=== PATIENT | female | born 1930 | race Caucasian/White ===

== ENCOUNTER 2018-07-16 12:42 | Inpatient (IN) | payer MEDICARE, BC ==
[2018-07-16 13:08] LABS: ADD MAN DIFF? NO
[2018-07-16 13:27] LABS: INR 0.93; PROTIME 12.6 Sec (11.9-14.9)
[2018-07-16 13:34] LABS: ADD UMIC NO; UR ASCORBIC ACID NEGATIVE (NEGATIVE); UR BILIRUBIN (Dip) NEGATIVE (NEGATIVE); UR BLOOD (Dip) NEGATIVE (NEGATIVE); UR CLARITY CLEAR (CLEAR); UR COLOR YELLOW (YELLOW); UR GLUCOSE (Dip) NEGATIVE (NEGATIVE); UR KETONES (Dip) NEGATIVE (NEGATIVE); UR LEUKOCYTE ESTERASE (Dip) NEGATIVE Leu/ul (NEGATIVE); UR NITRITE (Dip) NEGATIVE (NEGATIVE); UR SPECIFIC GRAVITY (Dip) 1.016 (1.003-1.030); UR TOTAL PROTEIN (Dip) NEGATIVE (NEGATIVE); UR UROBILINOGEN (Dip) NEGATIVE (NEGATIVE)
[2018-07-16 13:46] LABS: BASOPHILS % 0.3 % (0.0-2.0); EOSINOPHILS # 0.1 10^3/ul (0.0-0.5); HEMATOCRIT 40.8 % (37.0-47.0); HEMOGLOBIN 13.4 g/dl (12.0-16.0); LYMPHOCYTES % 16.6 % (15.0-51.0); MEAN CORPUSCULAR HEMOGLOBIN 32.1 pg (29.0-33.0); MEAN CORPUSCULAR HGB CONC 32.8 g/dl (32.0-37.0); MEAN CORPUSCULAR VOLUME 97.6 fl (82.0-101.0); MEAN PLATELET VOLUME 11.8 fl (7.4-10.4); MONOCYTE # 0.3 10^3/ul (0.3-0.9); MONOCYTES % 4.8 % (0.0-11.0); NEUTROPHIL # 4.7 10^3/ul (1.6-7.5); PLATELET COUNT 130 10^3/UL (140-415); RED BLOOD COUNT 4.18 10^6/ul (4.20-5.40)
[2018-07-16 13:46] LABS: WHITE BLOOD COUNT 6.1 10^3/ul (4.8-10.8)
[2018-07-16 14:04] LABS: ANION GAP 5 (5-13); BLOOD UREA NITROGEN 19 mg/dl (7-20); CALCIUM 9.2 mg/dl (8.4-10.2); CARBON DIOXIDE 31 mmol/L (21-31); CHLORIDE 106 mmol/L (97-110); CREATININE 0.78 mg/dl (0.44-1.00); GLUCOSE 117 mg/dl (70-220); POTASSIUM 3.8 mmol/L (3.5-5.1); SODIUM 142 mmol/L (135-144)
[2018-07-16 14:14] LABS: TROPONIN-I < 0.012 ng/ml (0.000-0.120)
[2018-07-16] MEDS ORDERED: NACL 0.9% 3 ML SYG IV (15:00)
[2018-07-16] MEDS ORDERED: ONDANSETRON 4 MG INJ IV (15:00)
[2018-07-16] MEDS ORDERED: ACETAMINOPHEN 325 MG TAB PO (15:00)
[2018-07-16] MEDS ORDERED: MECLIZINE 12.5 MG TAB PO (15:00)
[2018-07-16 15:48] LABS: AMPHETAMINE/METHAMPHETAMINE Negative (NEGATIVE); BARBITURATES Negative (NEGATIVE); BENZODIAZEPINES Negative (NEGATIVE); CANNABINOIDS Negative (NEGATIVE); COCAINE Negative (NEGATIVE); OPIATES Negative (NEGATIVE)
[2018-07-16 19:03] LABS: CREATINE KINASE 82 IU/L (23-200)
[2018-07-16 19:17] LABS: CK INDEX 1.3; CK-MB 1.06 ng/ml (0.0-2.4); TROPONIN-I 0.029 ng/ml (0.000-0.120)
[2018-07-16] MEDS: traZODone 50 MG TAB PO (23:59)
[2018-07-17 01:16] LABS: CREATINE KINASE 101 IU/L (23-200)
[2018-07-17 01:29] LABS: CK INDEX 1.1; CK-MB 1.11 ng/ml (0.0-2.4); TROPONIN-I 0.045 ng/ml (0.000-0.120)
[2018-07-17 05:54] LABS: ADD MAN DIFF? NO
[2018-07-17 06:02] LABS: BASOPHILS % 0.5 % (0.0-2.0); EOSINOPHILS # 0.1 10^3/ul (0.0-0.5); EOSINOPHILS % 1.6 % (0.0-7.0); HEMATOCRIT 39.6 % (37.0-47.0); HEMOGLOBIN 13.1 g/dl (12.0-16.0); LYMPHOCYTES # 2.6 10^3/ul (0.8-2.9); MEAN CORPUSCULAR HEMOGLOBIN 32.6 pg (29.0-33.0); MEAN CORPUSCULAR HGB CONC 33.1 g/dl (32.0-37.0); MEAN CORPUSCULAR VOLUME 98.5 fl (82.0-101.0); MEAN PLATELET VOLUME 12.1 fl (7.4-10.4); MONOCYTE # 0.6 10^3/ul (0.3-0.9); MONOCYTES % 8.4 % (0.0-11.0); NEUTROPHIL # 4.1 10^3/ul (1.6-7.5); NEUTROPHILS % 54.2 % (39.0-77.0); PLATELET COUNT 128 10^3/UL (140-415); RED BLOOD COUNT 4.02 10^6/ul (4.20-5.40); RED CELL DISTRIBUTION WIDTH 12.8 % (11.5-14.5)
[2018-07-17 06:02] LABS: WHITE BLOOD COUNT 7.5 10^3/ul (4.8-10.8)
[2018-07-17 06:49] LABS: CK INDEX 1.2; CK-MB 1.16 ng/ml (0.0-2.4); CREATINE KINASE 99 IU/L (23-200); TROPONIN-I 0.037 ng/ml (0.000-0.120)
[2018-07-17 06:53] LABS: CHOL/HDL RATIO 2.5 RATIO; CHOLESTEROL 166 mg/dl (100-200); HDL CHOLESTEROL 65 mg/dl (33-92); LDL CHOLESTEROL,CALCULATED 89 mg/dl; TRIGLYCERIDES 61 mg/dl (0-149)
[2018-07-17 06:53] LABS: PHOSPHORUS 3.7 mg/dl (2.5-4.9)
[2018-07-17 07:01] LABS: ANION GAP 5 (5-13); BLOOD UREA NITROGEN 18 mg/dl (7-20); CARBON DIOXIDE 31 mmol/L (21-31); CHLORIDE 106 mmol/L (97-110); CREATININE 0.78 mg/dl (0.44-1.00); GLUCOSE 98 mg/dl (70-220); POTASSIUM 3.9 mmol/L (3.5-5.1); SODIUM 142 mmol/L (135-144)
[2018-07-17] MEDS: LEVOTHYROXINE 75 MCG TAB PO (07:16)
[2018-07-17 07:35] LABS: B-TYPE NATRIURETIC PEPTIDE 1540 PG/ML (0-450)
[2018-07-17] MEDS: ASPIRIN (EC) 81 MG TAB PO (10:02)
[2018-07-17] MEDS: ENOXAPARIN 30 MG/0.3 ML SYG SC (10:07)
[2018-07-17] MEDS ORDERED: DOCUSATE SODIUM 100 MG CAP PO (18:00)
[2018-07-17] MEDS: HYDROCODONE/APAP (5/325) TAB PO (20:15)
[2018-07-17] MEDS: ATORVASTATIN 20 MG TAB PO (20:15)
[2018-07-18 06:02] LABS: PHOSPHORUS 3.9 mg/dl (2.5-4.9)
[2018-07-18 06:03] LABS: ALANINE AMINOTRANSFERASE 20 IU/L (13-69); ALBUMIN 2.8 g/dl (3.3-4.9); ALBUMIN/GLOBULIN RATIO 1.16; ALKALINE PHOSPHATASE 61 IU/L (42-121); ANION GAP 4 (5-13); ASPARTATE AMINO TRANSFERASE 18 IU/L (15-46); BILIRUBIN,INDIRECT 0.5 mg/dl (0-1.1); BILIRUBIN,TOTAL 0.5 mg/dl (0.2-1.3); BLOOD UREA NITROGEN 16 mg/dl (7-20); CALCIUM 8.4 mg/dl (8.4-10.2); CARBON DIOXIDE 32 mmol/L (21-31); CHLORIDE 103 mmol/L (97-110); CREATININE 0.77 mg/dl (0.44-1.00); GLUCOSE 91 mg/dl (70-220); SODIUM 139 mmol/L (135-144); TOTAL PROTEIN 5.2 g/dl (6.1-8.1)
[2018-07-18] MEDS: LEVOTHYROXINE 75 MCG TAB PO (06:52)
[2018-07-18 07:09] LABS: FOLATE 7.3 ng/ml (2.8-20.0)
[2018-07-18] MEDS: ASPIRIN (EC) 81 MG TAB PO (07:58)
[2018-07-18] MEDS: ENOXAPARIN 30 MG/0.3 ML SYG SC (10:39)
[2018-07-18] MEDS: NITROFURANTOIN (SR) 100 MG CAP PO ×2 (15:46→22:05)
[2018-07-18] MEDS: HYDROCODONE/APAP (5/325) TAB PO (20:38)
[2018-07-18] MEDS: ATORVASTATIN 20 MG TAB PO (20:38)
[2018-07-18] MEDS: MECLIZINE 12.5 MG TAB PO (20:38)
[2018-07-18] MEDS: PHENAZOPYRIDINE 200 MG TAB PO (20:38)
[2018-07-19] MEDS: LEVOTHYROXINE 75 MCG TAB PO ×2 (07:00→07:42)
[2018-07-19] MEDS: ASPIRIN (EC) 81 MG TAB PO (07:42)
[2018-07-19] MEDS: MECLIZINE 12.5 MG TAB PO ×3 (07:42→21:12)
[2018-07-19] MEDS: PHENAZOPYRIDINE 200 MG TAB PO ×3 (07:42→21:13)
[2018-07-19] MEDS: NITROFURANTOIN (SR) 100 MG CAP PO ×2 (07:42→21:13)
[2018-07-19] MEDS: ENOXAPARIN 30 MG/0.3 ML SYG SC (07:49)
[2018-07-19] MEDS: ATORVASTATIN 20 MG TAB PO (21:12)
[2018-07-20 06:48] LABS: ANION GAP 5 (5-13); BLOOD UREA NITROGEN 13 mg/dl (7-20); CARBON DIOXIDE 30 mmol/L (21-31); CHLORIDE 107 mmol/L (97-110); CREATININE 0.67 mg/dl (0.44-1.00); GLUCOSE 101 mg/dl (70-220); POTASSIUM 3.7 mmol/L (3.5-5.1); SODIUM 142 mmol/L (135-144)
[2018-07-20 06:55] LABS: MAGNESIUM 2.1 mg/dl (1.7-2.5)
[2018-07-20] MEDS: NITROFURANTOIN (SR) 100 MG CAP PO ×2 (08:37→20:08)
[2018-07-20] MEDS: MECLIZINE 12.5 MG TAB PO ×3 (08:37→20:09)
[2018-07-20] MEDS: PHENAZOPYRIDINE 200 MG TAB PO ×3 (08:37→20:08)
[2018-07-20] MEDS: ASPIRIN (EC) 81 MG TAB PO (08:37)
[2018-07-20] MEDS ORDERED: POLYMYXIN/BACITRACIN 1L IRRIG (13:56)
[2018-07-20] MEDS ORDERED: SOD CHLORIDE 0.9% 500 ML (14:19)
[2018-07-20] MEDS ORDERED: MIDAZOLAM 1 MG/ML 2 ML INJ ×2 (14:19→14:58)
[2018-07-20] MEDS ORDERED: IODIXANOL LOCM 50 ML BTL (14:19)
[2018-07-20] MEDS ORDERED: FENTAnyl 50 MCG/ML VIAL ×2 (14:19→14:59)
[2018-07-20] MEDS ORDERED: BUPIVACAINE 0.5% (SDV) 30 ML INJ (14:19)
[2018-07-20] MEDS ORDERED: LIDOCAINE 1%/EPI (1:100,000) (MDV) 20 ML (14:20)
[2018-07-20] MEDS ORDERED: CEFAZOLIN 1 GM/50 ML (PMX) 50 ML IVPB ×2 (14:30→18:00)
[2018-07-20] MEDS: CEFAZOLIN 2 GM/50 ML (PMX) 50 ML IVPB (16:40)
[2018-07-20] MEDS: ATORVASTATIN 20 MG TAB PO (20:09)
[2018-07-20] MEDS: HYDROCODONE/APAP (5/325) TAB PO (20:11)
[2018-07-20] MEDS: CEFAZOLIN 1 GM/50 ML (PMX) 50 ML IVPB (21:35)
[2018-07-21] MEDS: HYDROCODONE/APAP (5/325) TAB PO ×2 (01:58→08:48)
[2018-07-21 05:40] LABS: ADD MAN DIFF? NO
[2018-07-21 05:45] LABS: WHITE BLOOD COUNT 7.3 10^3/ul (4.8-10.8)
[2018-07-21 05:45] LABS: BASOPHILS % 0.5 % (0.0-2.0); EOSINOPHILS # 0.2 10^3/ul (0.0-0.5); EOSINOPHILS % 2.9 % (0.0-7.0); HEMATOCRIT 41.1 % (37.0-47.0); HEMOGLOBIN 13.4 g/dl (12.0-16.0); LYMPHOCYTES # 2.1 10^3/ul (0.8-2.9); MEAN CORPUSCULAR HEMOGLOBIN 32.2 pg (29.0-33.0); MEAN CORPUSCULAR HGB CONC 32.6 g/dl (32.0-37.0); MEAN CORPUSCULAR VOLUME 98.8 fl (82.0-101.0); MEAN PLATELET VOLUME 11.8 fl (7.4-10.4); MONOCYTE # 0.6 10^3/ul (0.3-0.9); MONOCYTES % 7.9 % (0.0-11.0); NEUTROPHIL # 4.4 10^3/ul (1.6-7.5); NEUTROPHILS % 60.3 % (39.0-77.0); PLATELET COUNT 128 10^3/UL (140-415); RED BLOOD COUNT 4.16 10^6/ul (4.20-5.40); RED CELL DISTRIBUTION WIDTH 12.8 % (11.5-14.5)
[2018-07-21 06:05] LABS: ANION GAP 6 (5-13); BLOOD UREA NITROGEN 13 mg/dl (7-20); CALCIUM 8.7 mg/dl (8.4-10.2); CARBON DIOXIDE 31 mmol/L (21-31); CHLORIDE 104 mmol/L (97-110); CREATININE 0.72 mg/dl (0.44-1.00); GLUCOSE 93 mg/dl (70-220); POTASSIUM 3.8 mmol/L (3.5-5.1); SODIUM 141 mmol/L (135-144)
[2018-07-21 06:06] LABS: MAGNESIUM 2.1 mg/dl (1.7-2.5)
[2018-07-21] MEDS: CEFAZOLIN 1 GM/50 ML (PMX) 50 ML IVPB ×2 (06:22→13:49)
[2018-07-21] MEDS: LEVOTHYROXINE 75 MCG TAB PO (06:50)
[2018-07-21] MEDS: ASPIRIN (EC) 81 MG TAB PO (08:48)
[2018-07-21] MEDS: NITROFURANTOIN (SR) 100 MG CAP PO ×2 (08:48→21:07)
[2018-07-21] MEDS: MECLIZINE 12.5 MG TAB PO ×3 (08:48→21:07)
[2018-07-21] MEDS: ATORVASTATIN 20 MG TAB PO (21:07)
[2018-07-22] MEDS: NITROFURANTOIN (SR) 100 MG CAP PO (08:20)
[2018-07-22] MEDS: SYNTHROID 75 MCG PO (08:20)
[2018-07-22] MEDS: ASPIRIN (EC) 81 MG TAB PO (08:21)
[2018-07-22] MEDS: MECLIZINE 12.5 MG TAB PO ×2 (08:21→13:48)
== END 2018-07-22 17:42 | DRG 243 ==
LOC: E/R 12:42 → 6WM 14:13
PROC: 0JH606Z Insertion of Pacemaker, Dual Chamber into Chest Subcutaneous Tissue and Fascia, Open Approach (ICD-10-PCS; principal; 2018-07-20 14:30)
PROC: 02HK3JZ Insertion of Pacemaker Lead into Right Ventricle, Percutaneous Approach (ICD-10-PCS; 2018-07-20 14:30)
PROC: 02H63JZ Insertion of Pacemaker Lead into Right Atrium, Percutaneous Approach (ICD-10-PCS; 2018-07-20 14:30)
DX: I49.5 Sick sinus syndrome (principal); N39.0 Urinary tract infection, site not specified; E03.9 Hypothyroidism, unspecified; M19.90 Unspecified osteoarthritis, unspecified site; R62.7 Adult failure to thrive; Z85.51 Personal history of malignant neoplasm of bladder; Z85.43 Personal history of malignant neoplasm of ovary
CPT/HCPCS: 36415; 70200; 70450; 70553; 71045; 72170; 73030; 73590; 73610-RT; 80048; 80053; 80061; 80307; 81003; 82550; 82553; 82607; 82728; 82746; 82962; 83735; 83880; 84100; 84439; 84443; 84484; 85025; 85610; 85730; 87086; 93005; 93306; 93880; 93970; 97110; 97116; 97162; 97530; 99285-25; G0378

== ENCOUNTER 2018-10-16 10:21 | Emergency (ER) | payer MEDICARE, BC ==
[2018-10-16] MEDS: PHENAZOPYRIDINE 100 MG TAB PO (11:11)
[2018-10-16 11:21] LABS: ADD UMIC YES; UR ASCORBIC ACID NEGATIVE (NEGATIVE); UR BACTERIA FEW /HPF (NONE SEEN); UR BILIRUBIN (Dip) NEGATIVE (NEGATIVE); UR BLOOD (Dip) 1+ mg/dL (NEGATIVE); UR BUDDING YEAST MODERATE /HPF (NONE SEEN); UR CLARITY CLOUDY (CLEAR); UR COLOR YELLOW (YELLOW); UR GLUCOSE (Dip) NEGATIVE (NEGATIVE); UR KETONES (Dip) NEGATIVE (NEGATIVE); UR LEUKOCYTE ESTERASE (Dip) 3+ Leu/ul (NEGATIVE); UR NITRITE (Dip) NEGATIVE (NEGATIVE); UR RBC 3 /HPF (0-5); UR SPECIFIC GRAVITY (Dip) 1.011 (1.003-1.030); UR SQUAMOUS EPITHELIAL CELL FEW /HPF (FEW); UR TOTAL PROTEIN (Dip) NEGATIVE (NEGATIVE); UR UROBILINOGEN (Dip) NEGATIVE (NEGATIVE); UR WBC 113 /HPF (0-5)
[2018-10-16] MEDS: CEFTRIAXONE 1 GM/50 ML (PMX) 50 ML IVPB (11:43)
== END 2018-10-16 12:37 | disposition home or self-care (01) ==
LOC: E/R 10:21
DX: N30.00 Acute cystitis without hematuria (principal); E03.9 Hypothyroidism, unspecified; Z86.73 Personal history of transient ischemic attack (TIA), and cerebral infarction without residual deficits
CPT/HCPCS: 81001; 87086; 96374; 99284-25